=== PATIENT | male | born 1975 | race Caucasian/White ===

== ENCOUNTER 2022-04-25 14:20 | Emergency (ER) | payer OTHER ==
[~2022-04-25] VITALS: Ht 177.8 cm; Wt 120.0 kg
[2022-04-25] MEDS ORDERED: IBUPROFEN 400MG TABLET PO ONE (16:15)
[2022-04-25 17:37] VITALS: BP 140/82
[2022-04-25] MEDS ORDERED: IBUP-2028 MT (17:59)
== END 2022-04-25 18:34 | disposition home or self-care (01) ==
LOC: ER 14:20
DX: M25.562 Pain in left knee (principal); M25.522 Pain in left elbow; G89.11 Acute pain due to trauma; I10 Essential (primary) hypertension; Y04.2XXA Assault by strike against or bumped into by another person, initial encounter; Y93.89 Activity, other specified; Y92.811 Bus as the place of occurrence of the external cause; Y99.0 Civilian activity done for income or pay
CPT/HCPCS: 73080; 73560; 99284